=== PATIENT | female | born 1955 | race Caucasian/White ===

== ENCOUNTER 2022-04-04 06:45 | Emergency (ER) | payer MEDICARE ==
[2022-04-04] MEDS ORDERED: Sodium Chloride 0.9% 10 ML Syringe FLUSH PRN (07:43)
[2022-04-04] MEDS ORDERED: Ketorolac 30 MG/ML SDV IVPUSH ONE (07:45)
[2022-04-04] MEDS ORDERED: Lactated Ringers 1,000 ML IV SCH (07:45)
[2022-04-04 08:42] LABS: ESTIMATED GFR 81 mL/min (>60)
[2022-04-04] MEDS ORDERED: LORazepam 0.5 MG Tab PO PRN (12:10)
[2022-04-04] MEDS ORDERED: Allopurinol 100 MG Tab PO SCH (12:15)
[2022-04-04] MEDS ORDERED: Non-Formulary Medication 1 Each (Loratadine [Claritin] 10 MG Capsule) PO SCH (12:15)
[2022-04-04] MEDS ORDERED: Potassium Chloride 20 MEQ Tab.ER PO SCH (12:15)
[2022-04-04] MEDS ORDERED: DILTIAZEM HCL 180 MG PO SCH (12:15)
[2022-04-04] MEDS ORDERED: Furosemide 40 MG Tab PO SCH (12:15)
[2022-04-04] MEDS ORDERED: lamoTRIgine 100 MG Tab PO SCH (12:15)
[2022-04-04] MEDS ORDERED: Amiodarone 200 MG Tab PO SCH (12:15)
[2022-04-04] MEDS ORDERED: TOPIRAMATE 200 MG PO SCH (12:30)
[2022-04-04] MEDS ORDERED: Warfarin 2.5 MG Tab PO SCH (12:30)
[2022-04-04] MEDS ORDERED: Diltiazem 180 MG Cap.CD PO SCH (12:30)
[2022-04-04] MEDS ORDERED: Loratadine 10 MG Tab PO SCH (12:30)
[2022-04-04] MEDS ORDERED: Topiramate 100 MG Tab PO SCH (12:30)
[2022-04-04] MEDS ORDERED: Diltiazem 25 MG/5 ML SDV IVPUSH ONE (13:28)
[2022-04-04] MEDS ORDERED: Sucralfate 1 GM Tab PO SCH (16:00)
[2022-04-04] MEDS ORDERED: Sertraline 50 MG Tab PO SCH (21:00)
[2022-04-04] MEDS ORDERED: Non-Formulary Medication 1 Each (Rosuvastatin [Crestor] 20 MG Tablet) PO SCH (21:00)
[2022-04-04] MEDS ORDERED: PRAMIPEXOLE 0.25 MG PO SCH (21:00)
== END 2022-04-04 15:23 | disposition home or self-care (01) ==
LOC: JP.ED 06:45
DX: K59.04 Chronic idiopathic constipation (principal); I48.91 Unspecified atrial fibrillation; E78.00 Pure hypercholesterolemia, unspecified; J44.9 Chronic obstructive pulmonary disease, unspecified; F17.210 Nicotine dependence, cigarettes, uncomplicated; Z95.0 Presence of cardiac pacemaker; Z88.7 Allergy status to serum and vaccine; Z79.899 Other long term (current) drug therapy; Z79.01 Long term (current) use of anticoagulants; Z20.822 Contact with and (suspected) exposure to COVID-19
CPT/HCPCS: 36415; 71046; 74018; 80053; 81001; 83605; 83690; 84145; 85025; 85610; 86140; 96361; 96365; 96366; 96375; 99284; A9270; J1885; J3490; J7120; U0002

== ENCOUNTER 2022-09-09 07:58 | Emergency (ER) | payer MEDICARE ==
[2022-09-09] MEDS ORDERED: Sodium Chloride 0.9% 10 ML Syringe FLUSH PRN ×2 (08:03→08:33)
[2022-09-09] MEDS ORDERED: Pantoprazole 80 MG in Sodium Chloride 0.9% 100 ML IV ONE (08:05)
[2022-09-09] MEDS ORDERED: Phytonadione 5 MG in Sodium Chloride 0.9% 50 ML IV ONE (08:05)
[2022-09-09] MEDS ORDERED: Sodium Chloride 0.9% 1,000 ML IV ONE (08:05)
[2022-09-09] MEDS ORDERED: Piperacillin/Tazobactam 3.375 GM in Sodium Chloride 0.9% 50 ML IV ONE (08:27)
[2022-09-09] MEDS ORDERED: cefTRIAXone 2 GM in Sodium Chloride 0.9% 50 ML IV ONE ×2 (08:29→08:45)
[2022-09-09] MEDS ORDERED: Sodium Chloride 0.9% 100 ML IV ONE (08:33)
[2022-09-09 08:38] LABS: ESTIMATED GFR 41 mL/min (>60)
[2022-09-09] MEDS ORDERED: Iopamidol 755 Mg/ML 100 ML Bottle IV SCH (08:45)
[2022-09-09] MEDS ORDERED: Potassium Chloride 10 MEQ in Premix Bag 1 BAG IV SCH (09:00)
[2022-09-09] MEDS ORDERED: Piperacillin/Tazobactam 3.375 GM in Sodium Chloride 0.9% 50 ML IV SCH (09:15)
[2022-09-09] MEDS ORDERED: Piperacillin/Tazobactam/Dext 3.375 GM in Premix Bag 1 BAG IV SCH (10:00)
[2022-09-09] MEDS: Potassium Chloride 10 MEQ in Premix Bag 1 BAG IV SCH (10:09)
== END 2022-09-09 10:20 ==
LOC: JP.ED 07:58
DX: K92.1 Melena (principal); R57.9 Shock, unspecified; R65.21 Severe sepsis with septic shock; J18.9 Pneumonia, unspecified organism; E87.6 Hypokalemia; I48.20 Chronic atrial fibrillation, unspecified; J44.9 Chronic obstructive pulmonary disease, unspecified; Z88.7 Allergy status to serum and vaccine; Z79.01 Long term (current) use of anticoagulants; Z95.0 Presence of cardiac pacemaker; Z20.822 Contact with and (suspected) exposure to COVID-19
CPT/HCPCS: 36415; 36430; 70450; 70450-26; 71275; 71275-26; 74174; 74174-26; 80053; 81001; 83605; 84145; 85025; 85610; 85730; 86850; 86900; 86901; 86920; 86922; 87040; 87086; 93005; 93010; 96365; 96367; 96368; 99285; 99285-25; C9113; J2543; J3370; J3430; J3490; J7030; J7050; P9017; Q9967; U0002

== ENCOUNTER 2022-12-17 20:42 | Emergency (ER) | payer MEDICARE ==
[2022-12-17] MEDS ORDERED: Sodium Chloride 0.9% 1,000 ML IV STA (20:59)
[2022-12-17] MEDS ORDERED: Sodium Chloride 0.9% 10 ML Syringe FLUSH PRN (20:59)
[2022-12-17] MEDS ORDERED: HYDROmorphone 0.5 MG/0.5 ML Syringe IVPUSH ONE (20:59)
[2022-12-17] MEDS ORDERED: Ondansetron 4 MG/2 ML SDV IVPUSH ONE (21:11)
[2022-12-17] MEDS ORDERED: Ondansetron 4 MG/2 ML SDV ONE (21:12)
[2022-12-17 21:14] LABS: BASOPHILS ABSOLUTE AUTO 0.08 K/uL (0.00-0.10); BASOPHILS PERCENT AUTO 0.6 % (0.1-1.3); EOSINOPHILS ABSOLUTE AUTO 0.12 K/uL (0.00-0.40); EOSINOPHILS PERCENT AUTO 0.9 % (0.0-5.4); HEMATOCRIT 44.5 % (34.3-46.0); HEMOGLOBIN 14.6 g/dL (11.2-15.5); IMMATURE GRAN ABSOLUTE AUTO 0.04 K/uL (0.00-0.23); IMMATURE GRAN PERCENT AUTO 0.3 % (0.0-0.7); LYMPHOCYTES ABSOLUTE AUTO 3.03 K/uL (0.8-3.3); LYMPHOCYTES PERCENT AUTO 23.7 % (11.4-47.7); MEAN CORPUSCULAR HEMOGLOBIN 32.1 pg (31.6-35.5); MEAN CORPUSCULAR HGB CONC 32.8 g/dL (31.6-35.5); MEAN CORPUSCULAR VOLUME 97.8 fL (81.4-99.0); MONOCYTES ABSOLUTE AUTO 0.85 K/uL (0.20-0.90); MONOCYTES PERCENT AUTO 6.6 % (3.3-12.6); NEUTROPHILS ABSOLUTE AUTO 8.67 K/uL (1.0-7.6); NEUTROPHILS PERCENT AUTO 67.9 % (40.0-78.1); PLATELET COUNT,PLT 372 K/uL (130-375); RED BLOOD CELL COUNT 4.55 M/uL (3.77-5.24); WHITE BLOOD CELL COUNT,WBC 12.8 K/uL (3.2-11.0)
[2022-12-17 21:36] LABS: INR 0.9; PROTHROMBIN TIME 9.3 sec (9.2-10.6)
[2022-12-17 21:40] LABS: A/G RATIO 0.9 (1.2-2.2); ALANINE AMINOTRANSFERASE,ALT 12 U/L (12-78); ALBUMIN 3.1 g/dL (3.4-5.0); ALKALINE PHOSPHATASE 134 U/L (46-116); ANION GAP 9.7 mmol/L (5.0-14.0); ASPARTATE AMNIOTRANSFERASE,AST 17 U/L (15-37); BILIRUBIN TOTAL 0.2 mg/dL (0.2-1.0); BLOOD UREA NITROGEN,BUN 18 mg/dL (7-18); CALCIUM 8.6 mg/dL (8.5-10.1); CARBON DIOXIDE,CO2 24 mmol/L (21-32); CHLORIDE,CL 106 mmol/L (100-108); CREATININE 0.8 mg/dL (0.6-1.0); EST CRCL DRUG DOSING (CG) 49.69 mL/min; ESTIMATED GFR 81 mL/min (>60); GLUCOSE RANDOM 91 mg/dL (74-106); LIPASE 144 U/L (73-393); POTASSIUM,K 4.1 mmol/L (3.6-5.2); PROTEIN TOTAL,TP 6.7 g/dL (6.4-8.2); SODIUM,NA 140 mmol/L (140-148); TROPONIN I HIGH SENSITIVITY 13.7 pg/mL (<=60.3)
[2022-12-17] MEDS ORDERED: Iopamidol 612 MG/ML 100 ML Bottle IV SCH (21:45)
[2022-12-17] MEDS ORDERED: Sodium Chloride 0.9% 50 ML IV SCH (21:45)
[2022-12-17 22:23] LABS: APPEARANCE,URINE CLEAR (CLEAR); BILIRUBIN,URINE NEGATIVE (NEGATIVE); COLOR,URINE YELLOW (YELLOW); GLUCOSE,URINE NEGATIVE (NEGATIVE); KETONES,URINE NEGATIVE (NEGATIVE); LEUKOCYTE ESTERASE,URINE NEGATIVE (NEGATIVE); NITRITE,URINE NEGATIVE (NEGATIVE); OCCULT BLOOD,URINE TRACE-INTACT (NEGATIVE); PROTEIN,URINE NEGATIVE (NEGATIVE); UROBILINOGEN,URINE 0.2 EU/dL (0.2-1.0)
[2022-12-17 22:29] LABS: AMORPHOUS SEDIMENT,URINE MODERATE; BACTERIA,URINE MODERATE; EPITHELIAL CELLS,URINE FEW; MUCUS,URINE NOT SEEN; RBC,URINE 0-5 (0-5); WBC,URINE NOT SEEN (0-5)
[2022-12-18] MEDS ORDERED: HYDROmorphone 0.5 MG/0.5 ML Syringe IVPUSH ONE (00:17)
== END 2022-12-18 02:14 ==
LOC: JP.ED 20:42
DX: R10.13 Epigastric pain (principal); R11.2 Nausea with vomiting, unspecified; I48.91 Unspecified atrial fibrillation; E78.00 Pure hypercholesterolemia, unspecified; J44.9 Chronic obstructive pulmonary disease, unspecified; Z95.0 Presence of cardiac pacemaker; Z79.899 Other long term (current) drug therapy; Z88.7 Allergy status to serum and vaccine; Z79.01 Long term (current) use of anticoagulants
CPT/HCPCS: 36415; 74177; 80053; 81001; 83605; 83690; 84484; 85025; 85610; 96361; 96374; 96375; 96376; 99284; J1170; J2405; J3490; J7030; Q9967

== ENCOUNTER 2023-07-27 12:10 | Inpatient (IN) | payer MEDICARE ==
[2023-07-27 12:27] LABS: BASOPHILS ABSOLUTE AUTO 0.06 K/uL (0.00-0.10); BASOPHILS PERCENT AUTO 0.7 % (0.1-1.3); EOSINOPHILS ABSOLUTE AUTO 0.13 K/uL (0.00-0.40); EOSINOPHILS PERCENT AUTO 1.4 % (0.0-5.4); HEMATOCRIT 39.7 % (34.3-46.0); HEMOGLOBIN 13.7 g/dL (11.2-15.5); IMMATURE GRAN ABSOLUTE AUTO 0.03 K/uL (0.00-0.23); IMMATURE GRAN PERCENT AUTO 0.3 % (0.0-0.7); LYMPHOCYTES ABSOLUTE AUTO 2.59 K/uL (0.8-3.3); LYMPHOCYTES PERCENT AUTO 28.1 % (11.4-47.7); MEAN CORPUSCULAR HEMOGLOBIN 32.7 pg (31.6-35.5); MEAN CORPUSCULAR HGB CONC 34.5 g/dL (31.6-35.5); MEAN CORPUSCULAR VOLUME 94.7 fL (81.4-99.0); MONOCYTES ABSOLUTE AUTO 0.74 K/uL (0.20-0.90); NEUTROPHILS ABSOLUTE AUTO 5.68 K/uL (1.0-7.6); NEUTROPHILS PERCENT AUTO 61.5 % (40.0-78.1); PLATELET COUNT,PLT 397 K/uL (130-375); RED BLOOD CELL COUNT 4.19 M/uL (3.77-5.24); WHITE BLOOD CELL COUNT,WBC 9.2 K/uL (3.2-11.0)
[2023-07-27] MEDS ORDERED: Sodium Chloride 0.9% 1,000 ML IV SCH (12:30)
[2023-07-27 12:43] LABS: PROTHROMBIN TIME 9.8 sec (9.2-10.6)
[2023-07-27 12:50] LABS: ALANINE AMINOTRANSFERASE,ALT 14 U/L (12-78); ALBUMIN 3.4 g/dL (3.4-5.0); ALKALINE PHOSPHATASE 104 U/L (46-116); ASPARTATE AMNIOTRANSFERASE,AST 18 U/L (15-37); BILIRUBIN TOTAL 0.4 mg/dL (0.2-1.0); BLOOD UREA NITROGEN,BUN 21 mg/dL (7-18); CALCIUM 8.8 mg/dL (8.5-10.1); CARBON DIOXIDE,CO2 23 mmol/L (21-32); CHLORIDE,CL 105 mmol/L (100-108); CREATININE 0.9 mg/dL (0.6-1.0); EST CRCL DRUG DOSING (CG) 43.57 mL/min; ESTIMATED GFR 70 mL/min (>60); GLUCOSE RANDOM 148 mg/dL (74-106); POTASSIUM,K 3.2 mmol/L (3.6-5.2); PROTEIN TOTAL,TP 6.9 g/dL (6.4-8.2); SODIUM,NA 140 mmol/L (140-148); TROPONIN I HIGH SENSITIVITY 9.8 pg/mL (<=60.3)
[2023-07-27 12:52] LABS: ANION GAP 15.2 mmol/L (5.0-14.0)
[2023-07-27] MEDS ORDERED: Amiodarone 150 MG/3 ML SDV IVPUSH ONE (12:57)
[2023-07-27] MEDS: Propofol 200 MG/20 ML SDV IVPUSH ONE ×2 (13:08→13:28)
[2023-07-27] MEDS: Propofol 200 MG/20 ML SDV ONE ×2 (13:08)
[2023-07-27] MEDS ORDERED: Dextrose 5% in Water 250 ML ONE (13:18)
[2023-07-27] MEDS ORDERED: Amiodarone 200 MG Tab PO ONE (13:19)
[2023-07-27 14:04] LABS: CORONAVIRUS COVID-19 NAA NEGATIVE (NEGATIVE); INFLUENZA A NAA NEGATIVE (NEGATIVE); INFLUENZA B NAA NEGATIVE (NEGATIVE); RESPIRATORY SYNCYTIAL VIR NAA NEGATIVE (NEGATIVE)
[2023-07-27 14:10] LABS: MAGNESIUM 1.7 mg/dL (1.8-2.4); TSH ULTRASENSITIVE 1.648 uIU/mL (0.358-3.740)
[2023-07-27] MEDS ORDERED: Potassium Chloride 20 MEQ Tab.ER PO ONE (14:30)
[2023-07-27] MEDS ORDERED: Ondansetron 4 MG/2 ML SDV IV PRN (14:40)
[2023-07-27] MEDS ORDERED: Polyethylene Glycol 3350 Powder 17 GM Packet PO PRN (14:40)
[2023-07-27] MEDS ORDERED: LORazepam 0.5 MG Tab PO PRN (14:40)
[2023-07-27] MEDS ORDERED: Acetaminophen 325 MG Tab PO PRN (14:40)
[2023-07-27] MEDS ORDERED: Sodium Chloride 0.9% 10 ML Syringe FLUSH PRN (14:40)
[2023-07-27 14:45] LABS: APPEARANCE,URINE CLOUDY (CLEAR); BILIRUBIN,URINE NEGATIVE (NEGATIVE); COLOR,URINE YELLOW (YELLOW); GLUCOSE,URINE NEGATIVE (NEGATIVE); KETONES,URINE NEGATIVE (NEGATIVE); LEUKOCYTE ESTERASE,URINE NEGATIVE (NEGATIVE); NITRITE,URINE POSITIVE (NEGATIVE); OCCULT BLOOD,URINE TRACE-INTACT (NEGATIVE); PH,URINE 5.5 (5.0-8.0); PROTEIN,URINE NEGATIVE (NEGATIVE); UROBILINOGEN,URINE 0.2 EU/dL (0.2-1.0)
[2023-07-27 14:52] LABS: AMORPHOUS SEDIMENT,URINE NOT SEEN; BACTERIA,URINE MODERATE; EPITHELIAL CELLS,URINE FEW; MUCUS,URINE NOT SEEN; RBC,URINE 0-5 (0-5); WBC,URINE 0-5 (0-5)
[2023-07-27] MEDS ORDERED: Norepinephrine Bit/D5W Premix 4 MG in Premix Bag 1 BAG IV SCH (15:00)
[2023-07-27] MEDS ORDERED: Potassium Chloride 10% 20 MEQ/15 ML Soln 15 ML UD Cup PO ONE (15:30)
[2023-07-27] MEDS: Sodium Chloride 0.9% 1,000 ML IV SCH ×2 (15:33→21:59)
[2023-07-27] MEDS: Potassium Chloride 10 MEQ in Premix Bag 1 BAG IV SCH ×4 (15:34→18:59)
[2023-07-27] MEDS ORDERED: Magnesium Sulfate/Water 2 GM in Premix Bag 1 BAG IV SCH (16:00)
[2023-07-27] MEDS: Sucralfate 1 GM Tab PO SCH ×2 (16:13→21:58)
[2023-07-27] MEDS: Apixaban 5 MG Tab PO SCH (20:17)
[2023-07-27] MEDS: Rosuvastatin 10 MG Tab PO SCH (20:18)
[2023-07-27] MEDS: Magnesium Oxide 400 MG Tab PO SCH (20:20)
[2023-07-27] MEDS: Pramipexole 0.5 MG Tab PO SCH (20:20)
[2023-07-27] MEDS: Sertraline 50 MG Tab PO SCH (20:22)
[2023-07-28] MEDS: Sodium Chloride 0.9% 1,000 ML IV SCH (05:39)
[2023-07-28 06:07] LABS: HEMATOCRIT 35.8 % (34.3-46.0); HEMOGLOBIN 12.1 g/dL (11.2-15.5); MEAN CORPUSCULAR HEMOGLOBIN 32.8 pg (31.6-35.5); MEAN CORPUSCULAR HGB CONC 33.8 g/dL (31.6-35.5); RED BLOOD CELL COUNT 3.69 M/uL (3.77-5.24); WHITE BLOOD CELL COUNT,WBC 8.7 K/uL (3.2-11.0)
[2023-07-28] MEDS: Sucralfate 1 GM Tab PO SCH ×5 (06:19→22:03)
[2023-07-28 06:28] LABS: CALCIUM 8.1 mg/dL (8.5-10.1); CREATININE 0.7 mg/dL (0.6-1.0); EST CRCL DRUG DOSING (CG) 56.02 mL/min; MAGNESIUM 1.9 mg/dL (1.8-2.4); POTASSIUM,K 4.3 mmol/L (3.6-5.2)
[2023-07-28 06:29] LABS: ANION GAP 14.3 mmol/L (5.0-14.0)
[2023-07-28] MEDS: Apixaban 5 MG Tab PO SCH ×2 (08:00→20:50)
[2023-07-28] MEDS: Amiodarone 200 MG Tab PO SCH (08:01)
[2023-07-28] MEDS: Topiramate 100 MG Tab PO SCH (08:02)
[2023-07-28] MEDS: Allopurinol 100 MG Tab PO SCH (08:02)
[2023-07-28] MEDS: Magnesium Oxide 400 MG Tab PO SCH ×2 (08:03→20:49)
[2023-07-28] MEDS: lamoTRIgine 100 MG Tab PO SCH (08:03)
[2023-07-28] MEDS: Potassium Chloride 10% 20 MEQ/15 ML Soln 15 ML UD Cup PO SCH (08:04)
[2023-07-28] MEDS ORDERED: Albuterol/Ipratropium 3.0-0.5 MG/3 ML Neb Soln NEB SCH (10:00)
[2023-07-28] MEDS: Metoprolol Succinate 25 MG Tab.ER PO SCH (11:25)
[2023-07-28] MEDS: predniSONE 20 MG Tab PO SCH (11:42)
[2023-07-28] MEDS: Furosemide 40 MG Tab PO SCH (11:42)
[2023-07-28] MEDS: Doxycycline 100 MG Cap PO SCH ×2 (11:43→22:03)
[2023-07-28] MEDS: Albuterol/Ipratropium 3.0-0.5 MG/3 ML Neb Soln NEB SCH ×2 (15:55→20:49)
[2023-07-28] MEDS: Rosuvastatin 10 MG Tab PO SCH (20:50)
[2023-07-28] MEDS: Pramipexole 0.5 MG Tab PO SCH (20:50)
[2023-07-28] MEDS: Sertraline 50 MG Tab PO SCH (20:51)
[2023-07-29 06:20] LABS: CALCIUM 8.5 mg/dL (8.5-10.1); CREATININE 0.8 mg/dL (0.6-1.0); EST CRCL DRUG DOSING (CG) 49.01 mL/min; POTASSIUM,K 3.8 mmol/L (3.6-5.2)
[2023-07-29 06:21] LABS: ANION GAP 10.8 mmol/L (5.0-14.0)
[2023-07-29] MEDS: Sucralfate 1 GM Tab PO SCH ×2 (06:35→10:12)
[2023-07-29] MEDS: Albuterol/Ipratropium 3.0-0.5 MG/3 ML Neb Soln NEB SCH ×2 (06:58→10:49)
[2023-07-29] MEDS: predniSONE 20 MG Tab PO SCH (08:05)
[2023-07-29] MEDS: Apixaban 5 MG Tab PO SCH (08:05)
[2023-07-29] MEDS: Furosemide 40 MG Tab PO SCH (08:15)
[2023-07-29] MEDS: Potassium Chloride 10% 20 MEQ/15 ML Soln 15 ML UD Cup PO SCH (08:16)
[2023-07-29] MEDS: Topiramate 100 MG Tab PO SCH (08:17)
[2023-07-29] MEDS: Amiodarone 200 MG Tab PO SCH (08:18)
[2023-07-29] MEDS: Metoprolol Succinate 25 MG Tab.ER PO SCH (08:19)
[2023-07-29] MEDS: lamoTRIgine 100 MG Tab PO SCH (08:19)
[2023-07-29] MEDS: Magnesium Oxide 400 MG Tab PO SCH (08:20)
[2023-07-29] MEDS: Allopurinol 100 MG Tab PO SCH (08:20)
[2023-07-29] MEDS: Doxycycline 100 MG Cap PO SCH (10:13)
== END 2023-07-29 12:53 | disposition home health service (06) | DRG 310 ==
LOC: JP.ED 12:10 → JP.ICU 13:21
PROVIDERS: ADMIT Hospitalist; ATTEND Hospitalist
PROC: 5A2204Z Restoration of Cardiac Rhythm, Single (ICD-10-PCS; principal; 2023-07-27)
DX: I48.91 Unspecified atrial fibrillation (principal); I95.89 Other hypotension; I10 Essential (primary) hypertension; E87.6 Hypokalemia; I95.9 Hypotension, unspecified; E83.42 Hypomagnesemia; J40 Bronchitis, not specified as acute or chronic; J44.9 Chronic obstructive pulmonary disease, unspecified; F41.9 Anxiety disorder, unspecified; Z20.822 Contact with and (suspected) exposure to COVID-19; I25.10 Atherosclerotic heart disease of native coronary artery without angina pectoris; I11.0 Hypertensive heart disease with heart failure; E78.00 Pure hypercholesterolemia, unspecified; I50.9 Heart failure, unspecified; F17.210 Nicotine dependence, cigarettes, uncomplicated; Z86.16 Personal history of COVID-19; Z88.7 Allergy status to serum and vaccine; Z87.11 Personal history of peptic ulcer disease; Z90.710 Acquired absence of both cervix and uterus; Z90.721 Acquired absence of ovaries, unilateral; Z95.810 Presence of automatic (implantable) cardiac defibrillator; Z90.49 Acquired absence of other specified parts of digestive tract; Z98.890 Other specified postprocedural states; Z79.01 Long term (current) use of anticoagulants; Z79.899 Other long term (current) drug therapy; Z11.52 Encounter for screening for COVID-19
CPT/HCPCS: 0241U; 36415; 71045; 71045-26; 80048; 80053; 81001; 83735; 84145; 84443; 84484; 85025; 85027; 85610; 86140; 93005; 94640; 97161-GP; A9270-GY; J0282; J2704; J3475; J3480; J7030; J7512; J7620

== ENCOUNTER 2023-11-13 12:16 | Emergency (ER) | payer MEDICARE ==
[2023-11-13] MEDS ORDERED: LORazepam 2 MG/ML SDV IM ONE (13:57)
[2023-11-13] MEDS ORDERED: HYDROmorphone 1 MG/ML Syringe IM ONE (13:57)
[2023-11-13 14:27] LABS: BICARBONATE,ARTERIAL 20.9 mmol/L (22.0-26.0); CARBOXYHEMOGLOBIN 1.9 % (0.0-1.6); O2 SATURATION ARTERIAL 94.4 % (95.0-98.0); OXYHEMOGLOBIN 91.7 %; PCO2 ARTERIAL 35.7 mmHg (35.0-42.0); PO2 ARTERIAL 70.9 mmHg (75.0-100.0); TOTAL HEMOGLOBIN 12.6 g/dL (12.0-16.0)
[2023-11-13 14:36] LABS: BASOPHILS ABSOLUTE AUTO 0.05 K/uL (0.00-0.10); BASOPHILS PERCENT AUTO 0.3 % (0.1-1.3); EOSINOPHILS ABSOLUTE AUTO 0.06 K/uL (0.00-0.40); EOSINOPHILS PERCENT AUTO 0.4 % (0.0-5.4); HEMATOCRIT 35.8 % (34.3-46.0); HEMOGLOBIN 12.3 g/dL (11.2-15.5); IMMATURE GRAN ABSOLUTE AUTO 0.05 K/uL (0.00-0.23); IMMATURE GRAN PERCENT AUTO 0.3 % (0.0-0.7); LYMPHOCYTES PERCENT AUTO 11.6 % (11.4-47.7); MEAN CORPUSCULAR HGB CONC 34.4 g/dL (31.6-35.5); MONOCYTES ABSOLUTE AUTO 1.06 K/uL (0.20-0.90); MONOCYTES PERCENT AUTO 6.8 % (3.3-12.6); NEUTROPHILS ABSOLUTE AUTO 12.51 K/uL (1.0-7.6); NEUTROPHILS PERCENT AUTO 80.6 % (40.0-78.1); PLATELET COUNT,PLT 406 K/uL (130-375); RED BLOOD CELL COUNT 3.73 M/uL (3.77-5.24); WHITE BLOOD CELL COUNT,WBC 15.5 K/uL (3.2-11.0)
[2023-11-13 14:59] LABS: A/G RATIO 0.9 (1.2-2.2); ALANINE AMINOTRANSFERASE,ALT 54 U/L (12-78); ALBUMIN 3.2 g/dL (3.4-5.0); ALKALINE PHOSPHATASE 191 U/L (46-116); ASPARTATE AMNIOTRANSFERASE,AST 69 U/L (15-37); BILIRUBIN TOTAL 0.5 mg/dL (0.2-1.0); BLOOD UREA NITROGEN,BUN 21 mg/dL (7-18); CARBON DIOXIDE,CO2 22 mmol/L (21-32); CHLORIDE,CL 108 mmol/L (100-108); CREATININE 0.8 mg/dL (0.6-1.0); EST CRCL DRUG DOSING (CG) 49.01 mL/min; ESTIMATED GFR 81 mL/min (>60); GLUCOSE RANDOM 91 mg/dL (74-106); PROTEIN TOTAL,TP 6.7 g/dL (6.4-8.2); SODIUM,NA 142 mmol/L (140-148); TROPONIN I HIGH SENSITIVITY 4.4 pg/mL (<=60.3)
[2023-11-13 15:01] LABS: ANION GAP 14.8 mmol/L (5.0-14.0); POTASSIUM,K 2.8 mmol/L (3.6-5.2)
[2023-11-13] MEDS: Potassium Chloride 20 MEQ Tab.ER PO ONE ×2 (15:37→16:37)
[2023-11-13] MEDS: Potassium Chloride 20 MEQ in Premix Bag 1 BAG IV ONE (15:38)
[2023-11-13] MEDS: Potassium Chloride 10 MEQ in Premix Bag 1 BAG IV SCH (16:31)
[2023-11-13 18:24] LABS: AMPHETAMINES SCREEN, URINE PRESUMPTIVE POSITIVE (NEGATIVE); BARBITURATE SCREEN,URINE NEGATIVE (NEGATIVE); BENZODIAZEPINES SCREEN,URINE NEGATIVE (NEGATIVE); METHADONE SCREEN, URINE NEGATIVE (NEGATIVE); METHAMPHETAMINES SCREEN, URINE PRESUMPTIVE POSITIVE (NEGATIVE); OXYCODONE SCREEN,URINE NEGATIVE (NEGATIVE); PROPOXYPHENE SCREEN,URINE NEGATIVE (NEGATIVE); THC SCREEN,URINE 50 NG/ML PRESUMPTIVE POSITIVE (NEGATIVE)
[2023-11-13] MEDS: Iopamidol 612 MG/ML 100 ML Bottle IV SCH (19:03)
[2023-11-13] MEDS: Sodium Chloride 0.9% 100 ML IV SCH (19:04)
[2023-11-13] MEDS: Sodium Chloride 0.9% 10 ML Syringe FLUSH PRN (19:04)
[2023-11-13] MEDS ORDERED: Ketorolac 15 MG/ML SDV IVPUSH ONE (20:54)
[2023-11-13] MEDS: Ketorolac 30 MG/ML SDV IVPUSH ONE (20:59)
== END 2023-11-13 21:44 | disposition home or self-care (01) ==
LOC: JP.ED 12:16
DX: G89.29 Other chronic pain (principal); M54.2 Cervicalgia; E87.6 Hypokalemia; F15.10 Other stimulant abuse, uncomplicated; G89.4 Chronic pain syndrome; J44.9 Chronic obstructive pulmonary disease, unspecified; I48.91 Unspecified atrial fibrillation; I11.0 Hypertensive heart disease with heart failure; I50.9 Heart failure, unspecified; F17.210 Nicotine dependence, cigarettes, uncomplicated; Z90.49 Acquired absence of other specified parts of digestive tract; Z88.7 Allergy status to serum and vaccine; Z90.710 Acquired absence of both cervix and uterus; Z79.01 Long term (current) use of anticoagulants; Z79.899 Other long term (current) drug therapy
CPT/HCPCS: 36415; 36600; 70491; 80053; 80305; 80307; 82803; 83605; 84484; 85025; 96374; 99284; A9270; J1885; J3490; Q9967; J3480

== ENCOUNTER 2024-01-16 05:25 | Emergency (ER) | payer MEDICARE ==
[2024-01-16 05:34] LABS: BASOPHILS ABSOLUTE AUTO 0.09 K/uL (0.00-0.10); BASOPHILS PERCENT AUTO 0.8 % (0.1-1.3); EOSINOPHILS ABSOLUTE AUTO 0.24 K/uL (0.00-0.40); EOSINOPHILS PERCENT AUTO 2.2 % (0.0-5.4); HEMATOCRIT 33.8 % (34.3-46.0); HEMOGLOBIN 11.2 g/dL (11.2-15.5); IMMATURE GRAN ABSOLUTE AUTO 0.04 K/uL (0.00-0.23); IMMATURE GRAN PERCENT AUTO 0.4 % (0.0-0.7); LYMPHOCYTES ABSOLUTE AUTO 2.24 K/uL (0.8-3.3); LYMPHOCYTES PERCENT AUTO 20.6 % (11.4-47.7); MEAN CORPUSCULAR HEMOGLOBIN 31.5 pg (31.6-35.5); MEAN CORPUSCULAR HGB CONC 33.1 g/dL (31.6-35.5); MEAN CORPUSCULAR VOLUME 95.2 fL (81.4-99.0); MONOCYTES ABSOLUTE AUTO 0.79 K/uL (0.20-0.90); MONOCYTES PERCENT AUTO 7.3 % (3.3-12.6); NEUTROPHILS ABSOLUTE AUTO 7.47 K/uL (1.0-7.6); NEUTROPHILS PERCENT AUTO 68.7 % (40.0-78.1); PLATELET COUNT,PLT 386 K/uL (130-375); RED BLOOD CELL COUNT 3.55 M/uL (3.77-5.24); WHITE BLOOD CELL COUNT,WBC 10.9 K/uL (3.2-11.0)
[2024-01-16] MEDS ORDERED: Propofol 200 MG/20 ML SDV IVPUSH ONE ×2 (05:38→06:09)
[2024-01-16 05:58] LABS: ALANINE AMINOTRANSFERASE,ALT 16 U/L (12-78); ALBUMIN 2.8 g/dL (3.4-5.0); ALKALINE PHOSPHATASE 110 U/L (46-116); ASPARTATE AMNIOTRANSFERASE,AST 17 U/L (15-37); BILIRUBIN TOTAL 0.2 mg/dL (0.2-1.0); BLOOD UREA NITROGEN,BUN 15 mg/dL (7-18); CALCIUM 8.6 mg/dL (8.5-10.1); CARBON DIOXIDE,CO2 20 mmol/L (21-32); CHLORIDE,CL 111 mmol/L (100-108); CREATININE 1.1 mg/dL (0.6-1.0); EST CRCL DRUG DOSING (CG) 35.65 mL/min; ESTIMATED GFR 55 mL/min (>60); GLUCOSE RANDOM 106 mg/dL (74-106); POTASSIUM,K 4.7 mmol/L (3.6-5.2); PROTEIN TOTAL,TP 6.1 g/dL (6.4-8.2); SODIUM,NA 142 mmol/L (140-148)
[2024-01-16 06:05] LABS: A/G RATIO 0.9 (1.2-2.2); ANION GAP 15.7 mmol/L (5.0-14.0)
[2024-01-16 06:06] LABS: TROPONIN I HIGH SENSITIVITY 81.6 pg/mL (<=60.3)
[2024-01-16] MEDS: DOPamine/Dextrose 5%-Water 400 MG/250 ML BAG IV SCH (06:12)
[2024-01-16] MEDS ORDERED: Digoxin 500 MCG/2 ML Amp IVPUSH ONE (06:24)
[2024-01-16] MEDS: Norepinephrine Bit/D5W Premix 4 MG in Premix Bag 1 BAG IV SCH (06:41)
[2024-01-16] MEDS: Amiodarone 150 MG/3 ML SDV IVPUSH ONE (06:42)
[2024-01-16] MEDS: Norepinephrine Bit/D5W Premix 250 ML ONE (06:53)
[2024-01-16] MEDS: Propofol 200 MG/20 ML SDV ONE (06:53)
[2024-01-16] MEDS: Propofol 200 MG/20 ML SDV IVPUSH ONE (06:55)
[2024-01-16] MEDS: Digoxin 500 MCG/2 ML Amp IVPUSH ONE (06:55)
[2024-01-16 07:12] LABS: APPEARANCE,URINE CLEAR (CLEAR); BILIRUBIN,URINE NEGATIVE (NEGATIVE); COLOR,URINE YELLOW (YELLOW); GLUCOSE,URINE NEGATIVE (NEGATIVE); KETONES,URINE TRACE mg/dL (NEGATIVE); LEUKOCYTE ESTERASE,URINE NEGATIVE (NEGATIVE); NITRITE,URINE NEGATIVE (NEGATIVE); OCCULT BLOOD,URINE NEGATIVE (NEGATIVE); PROTEIN,URINE 30 mg/dL (NEGATIVE)
[2024-01-16] MEDS: DOPamine/Dextrose 5%-Water 400 MG/250 ML BAG ONE (07:14)
[2024-01-16 07:19] LABS: AMORPHOUS SEDIMENT,URINE MANY; BACTERIA,URINE RARE; EPITHELIAL CELLS,URINE MANY; MUCUS,URINE MODERATE; RBC,URINE NOT SEEN (0-5); WBC,URINE NOT SEEN (0-5)
[2024-01-16 07:20] LABS: AMPHETAMINES SCREEN, URINE NEGATIVE (NEGATIVE); BARBITURATE SCREEN,URINE NEGATIVE (NEGATIVE); BENZODIAZEPINES SCREEN,URINE NEGATIVE (NEGATIVE); METHADONE SCREEN, URINE NEGATIVE (NEGATIVE); METHAMPHETAMINES SCREEN, URINE PRESUMPTIVE POSITIVE (NEGATIVE); OXYCODONE SCREEN,URINE NEGATIVE (NEGATIVE); PROPOXYPHENE SCREEN,URINE NEGATIVE (NEGATIVE); THC SCREEN,URINE 50 NG/ML PRESUMPTIVE POSITIVE (NEGATIVE)
== END 2024-01-16 07:36 ==
LOC: JP.ED 05:25
DX: I48.91 Unspecified atrial fibrillation (principal); I95.89 Other hypotension; I10 Essential (primary) hypertension; J44.9 Chronic obstructive pulmonary disease, unspecified; Z88.7 Allergy status to serum and vaccine; Z88.8 Allergy status to other drugs, medicaments and biological substances; Z79.899 Other long term (current) drug therapy; Z90.49 Acquired absence of other specified parts of digestive tract; Z90.710 Acquired absence of both cervix and uterus
CPT/HCPCS: 36415; 51702; 71045; 80053; 80305; 81001; 83735; 84484; 85025; 92960; 96365; 96368; 99285; J0282; J1265; J2704; J7060; 93010

== ENCOUNTER 2024-03-03 01:15 | Emergency (ER) | payer MEDICARE ==
[2024-03-03 02:10] LABS: BASOPHILS ABSOLUTE AUTO 0.08 K/uL (0.00-0.10); EOSINOPHILS ABSOLUTE AUTO 0.21 K/uL (0.00-0.40); EOSINOPHILS PERCENT AUTO 2.7 % (0.0-5.4); HEMATOCRIT 33.4 % (34.3-46.0); HEMOGLOBIN 11.2 g/dL (11.2-15.5); IMMATURE GRAN PERCENT AUTO 0.3 % (0.0-0.7); LYMPHOCYTES ABSOLUTE AUTO 3.08 K/uL (0.8-3.3); LYMPHOCYTES PERCENT AUTO 38.9 % (11.4-47.7); MEAN CORPUSCULAR HEMOGLOBIN 33.1 pg (31.6-35.5); MEAN CORPUSCULAR HGB CONC 33.5 g/dL (31.6-35.5); MEAN CORPUSCULAR VOLUME 98.8 fL (81.4-99.0); MONOCYTES ABSOLUTE AUTO 0.85 K/uL (0.20-0.90); MONOCYTES PERCENT AUTO 10.7 % (3.3-12.6); NEUTROPHILS ABSOLUTE AUTO 3.67 K/uL (1.0-7.6); NEUTROPHILS PERCENT AUTO 46.4 % (40.0-78.1); PLATELET COUNT,PLT 353 K/uL (130-375); RED BLOOD CELL COUNT 3.38 M/uL (3.77-5.24); WHITE BLOOD CELL COUNT,WBC 7.9 K/uL (3.2-11.0)
[2024-03-03 02:19] LABS: IMMATURE GRAN ABSOLUTE AUTO 0.02 K/uL (0.00-0.23)
[2024-03-03 02:31] LABS: A/G RATIO 1.1 (1.2-2.2); ALANINE AMINOTRANSFERASE,ALT 17 U/L (12-78); ALBUMIN 3.2 g/dL (3.4-5.0); ALKALINE PHOSPHATASE 114 U/L (46-116); ASPARTATE AMNIOTRANSFERASE,AST 15 U/L (15-37); BILIRUBIN TOTAL 0.1 mg/dL (0.2-1.0); BLOOD UREA NITROGEN,BUN 23 mg/dL (7-18); CALCIUM 8.5 mg/dL (8.5-10.1); CARBON DIOXIDE,CO2 25 mmol/L (21-32); CHLORIDE,CL 111 mmol/L (100-108); CREATININE 1.2 mg/dL (0.6-1.0); EST CRCL DRUG DOSING (CG) 32.68 mL/min; ESTIMATED GFR 50 mL/min (>60); GLUCOSE RANDOM 72 mg/dL (74-106); POTASSIUM,K 3.9 mmol/L (3.6-5.2); PROTEIN TOTAL,TP 6.2 g/dL (6.4-8.2); SODIUM,NA 145 mmol/L (140-148)
[2024-03-03 02:32] LABS: ANION GAP 12.9 mmol/L (5.0-14.0)
[2024-03-03 02:33] LABS: DIGOXIN 0.97 ng/mL (0.90-2.00); MAGNESIUM 1.9 mg/dL (1.8-2.4)
== END 2024-03-03 04:10 | disposition home or self-care (01) ==
LOC: JP.ED 01:15
DX: I48.19 Other persistent atrial fibrillation (principal); I10 Essential (primary) hypertension; J44.9 Chronic obstructive pulmonary disease, unspecified; F17.210 Nicotine dependence, cigarettes, uncomplicated; Z79.899 Other long term (current) drug therapy; Z79.01 Long term (current) use of anticoagulants; Z88.7 Allergy status to serum and vaccine; Z88.5 Allergy status to narcotic agent; Z88.8 Allergy status to other drugs, medicaments and biological substances
CPT/HCPCS: 36415; 80053; 80162; 83735; 85025; 99285